=== PATIENT | male | born 1985 | race Caucasian/White ===

== ENCOUNTER 2021-04-13 15:00 | Outpatient (RCR) | payer OTHER, SELFPAY | END 2021-05-23 11:39 | disposition home or self-care (01) | LOC: HO.PT 15:00 | PROVIDERS: PCP Internal Medicine; Visit Provider Nurse Practitioner Acute Care | DX: M53.86 Other specified dorsopathies, lumbar region (principal) | CPT/HCPCS: 97110; 97161; 97530 ==

== ENCOUNTER 2021-12-05 10:20 | Outpatient (REF) | payer OTHER, SELFPAY ==
[2021-12-05 11:42] LABS: Alanine Aminotransferase 11 U/L (0-40); Albumin Level 4.5 g/dL (3.5-5.0); Alkaline Phosphatase 85 U/L (39-117); Anion Gap 14 (12-20); Aspartate Amino Transferase 16 U/L (5-37); Bilirubin Direct 0.2 mg/dL (0.0-0.5); Bilirubin Total 0.7 mg/dL (0.0-1.0); Blood Urea Nitrogen 10 mg/dL (9-16); Calcium 9.3 mg/dL (8.4-10.2); Carbon Dioxide 26 mmol/L (22-29); Chloride 104 mmol/L (96-108); Estimated Glomerular Filt Rate > 60; Glucose Random 98 mg/dL (60-115); Potassium 4.4 mmol/L (3.3-5.1); Sodium 140 mmol/L (135-145); Total Protein 7.3 g/dL (6.5-8.0)
[2021-12-05 11:46] LABS: Hematocrit 44.8 % (42.0-52.0); Hemoglobin 15.4 g/dl (14.0-18.0); Mean Corpuscular HGB Conc 34.4 g/dl (31.0-36.0); Mean Corpuscular Hemoglobin 30.1 pg (27.0-33.0); Mean Corpuscular Volume 87.7 fL (80.0-98.0); Mean Platelet Volume 9.8 fL (9.4-12.4); Platelet Count 194 X10*3/uL (160-400); Red Blood Count 5.11 X10*6/uL (4.60-5.80); Red Cell Distribution Width 12.1 % (11.0-16.0); White Blood Count 5.4 X10*3/uL (4.8-10.8)
[2021-12-05 12:03] LABS: Thyroid Stimulating Hormone 0.86 uIU/mL (0.32-4.0)
[2021-12-05 12:21] LABS: Erythrocyte Sedimentation Rate 5 MM/HR (0-15)
== END 2021-12-05 10:21 | disposition home or self-care (01) ==
LOC: HO.LAB 10:20
PROVIDERS: PCP Internal Medicine; Visit Provider Internal Medicine
DX: R10.9 Unspecified abdominal pain (principal)
CPT/HCPCS: 36415; 80048; 80076; 84443; 85027; 85652

== ENCOUNTER 2021-12-20 12:10 | Outpatient (REF) | payer OTHER, SELFPAY ==
--- NOTE | ~2021-12-20 | CT_ITS ---
EXAMINATION: CT ABDOMEN AND PELVIS WITH CONTRAST CLINICAL INFORMATION: Abdominal pain. COMPARISON: None TECHNIQUE: Multidetector volumetric images were obtained from the superior aspect of the liver through the pubic symphysis following administration 85 mL of Omnipaque 350 intravenous contrast. Sagittal and coronal reformatted images were obtained on the technologist's workstation. Oral contrast: No This CT examination was performed using dose optimization techniques as appropriate, variously including the following: *Automated exposure control *Adjustment of mA and/or kV according to patient size (this includes techniques or standardized protocols for targeted exams where dose is matched to indication/reason for exam; i.e. extremities or head) *Use of iterative reconstruction technique DLP: 435 mGy-cm FINDINGS: LUNG BASES: The visualized lung bases are unremarkable. LIVER, GALLBLADDER, AND BILIARY TREE: The liver is normal in size, shape, and attenuation. No focal hepatic lesion or biliary ductal dilatation is present. The gallbladder is unremarkable with no evidence of radiopaque gallstones, gallbladder wall thickening, or obvious pericholecystic inflammatory changes. PANCREAS: Unremarkable. SPLEEN: Unremarkable. ADRENAL GLANDS: Unremarkable. KIDNEYS AND URETERS: The kidneys are normal in size, shape, and attenuation. No hydronephrosis, hydroureter, or calculi seen. No perinephric stranding. BLADDER: Unremarkable. GASTROINTESTINAL TRACT: The small and large bowel are unremarkable. The appendix is unremarkable. No free air or free fluid. ABDOMINAL WALL: No significant hernia is appreciated. LYMPH NODES: Normal. VASCULAR: Unremarkable. PELVIC VISCERA: The prostate and seminal vesicles are unremarkable. OSSEOUS STRUCTURES: Unremarkable. CT/CT abdomen pelvis w IV con IMPRESSION: No acute findings of the abdomen or pelvis. No inflammatory changes. Normal appendix. Fleischner guidelines were followed.
[2021-12-20] MEDS: Barium Sulfate Oral (Vanilla) 450 ML ORAL.SUSP 900 ML PO (13:55)
[2021-12-20] MEDS: iohexoL 350 MG/ML 100 ML INFUS..BTL 85 ML IV (15:13)
== END 2021-12-20 12:11 | disposition home or self-care (01) ==
LOC: HO.CT 12:10
PROVIDERS: PCP Internal Medicine; Visit Provider Internal Medicine
DX: R10.9 Unspecified abdominal pain (principal)
CPT/HCPCS: 74177; Q9967

== ENCOUNTER 2023-05-30 13:53 | Outpatient (AMB) | payer OTHER, SELFPAY ==
--- NOTE | 2023-05-30 14:10 | A.OFFPC_ITS ---
Vital Signs 05/30/23 14:12 Height 5 ft 10 in Weight 204 lb 4 oz BMI 29.3 BP 130/80 Blood Pressure Location Lt brachial Position Sitting Pulse 58 Pulse Source Pulse Oximeter Pulse Oximetry (%) 98 Oxygen Delivery Method Room Air Intake Visit Reasons: PE Intake Note: Patient is here today for a physical. Cutter Out Required: No Cloth Printing Utility Worker: Not Required per policy Accompanied by: Self / Same As Patient Allergies amoxicillin Allergy (Verified 06/01/23 17:25) Hives Penicillins Allergy (Verified 06/01/23 17:25) Rash Medication List - Last Reconciled 06/01/23 by Hugo Workman MD No Known Home Meds Tobacco use date assessed: 05/30/23 Dental Screening Dental Screen Date: 05/30/23 Did you have a dental visit in the last 12 months?: Yes Did you have a dental problem in the last 6 months where you did not have access to dental care?: No Was dental information given to patient?: Patient has dentist HPI PE HPI Details 37-year-old male presents to the office requesting an annual physical. He is in good health. Able to function and do all activities of daily living. [facility] Medical History APL (acute promyelocytic leukemia) in remission Surgical History [place] teeth extracted Family History Paternal Grandmother Type 2 diabetes mellitus Degeneration macular Maternal Grandfather Lymphoma Paternal Grandfather Prostate cancer Colon cancer Father Prostate cancer Social History Household Members: Spouse and Children Housing: House Alcohol intake: current Alcohol intake frequency: a few times a week Alcohol type: beer, wine, hard liquor and other Patient Tobacco Use Status: Never used Tobacco e-Cigarette/Vaping Use: Never Used Second Hand Smoke Exposure: No service: No Current occupational status: employed 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 1. Little interest or pleasure in doing things: not at all 2. Feeling down, depressed, or hopeless: not at all 3. Trouble falling or staying asleep, or sleeping too much: not at all 4. Feeling tired or having little energy: not at all 5. Poor appetite or overeating: not at all 6. Feeling bad about yourself - or that you are a failure or have let yourself or your family down: not at all 7. Trouble concentrating on things, such as reading the newspaper or watching television: not at all 8. Moving or speaking so slowly that other people could have noticed. Or the opp osite - being so fidgety or restless that you have been moving around a lot more than usual: not at all 9. Thoughts that you would be better off or of hurting yourself in some way: not at all Total score: 0 Depression Screening Interpretation: Negative Depression Screening Done: Yes Source: Developed by Drs. Pipo Mera, Kiesha Shannon, Brandon Aquino and colleagues, with an educational aditi from [employer] Thrive Questionnaire Date Thrive assessed: 05/30/23 I am a: Patient What is your living situation today?: I have a steady place to live Within the past 12 months, did the food you bought not last and you didn't have the money to get more?: Never true Within the past 12 months, did you worry whether your food would run out before you got money to buy more?: Never true Do you have trouble paying for medicines?: No Do you have trouble getting transportation to medical appointments?: No Do you have trouble paying your heating and electricity bill?: No Do you have trouble taking care of your child, family member or friend?: No Do you have trouble with day-to-day activities such as bathing, preparing meals, shopping, managing finances, etc.?: No Are you currently unemployed and looking for a job?: No Are you interested in more education?: No Currently or been in a relationship where the following occur: no concerns reported THRIVE Score: 0 AUDIT C Alcohol Use Questionnaire (AUDIT-C) 1. How often do you have a drink containing alcohol?: 2-3 times a week 2. How many drinks containing alcohol do you have on a typical day when you are drinking?: 1 or 2 Total Score: 3 HONG-7 AMB Questionnaire HONG-7 Date HONG - 7 assessed: 05/30/23 Feeling nervous, anxious, or on edge: 0 = Not at all Not being able to stop or control worryin = Not at all Worrying too much about different things: 0 = Not at all Trouble relaxin = Not at all Being so restless that it is hard to sit still: 0 = Not at all Becoming easily annoyed or irritable: 0 = Not at all Feeling afraid as if something awful might happen: 0 = Not at all Total HONG-7 score (0-4 normal; 5-9 mild; 10-14 moderate; 15-21 severe): 0 Source: Developed by Drs. Pipo Mera, Kiesha Shannon, Brandon Aquino and colleagues, with an educational aditi from [employer]. Physical exam (Primary Care) Vital Signs: Last Vital Signs Pulse 58 05/30/23 14:12 BP 130/80 05/30/23 14:12 Pulse Ox 98 05/30/23 14:12 Oxygen Delivery Method Room Air 05/30/23 14:12 Care Plan Goal for BP management: Blood pressure is in range. BMI result Body Mass Index 29.3 Tobacco/Smoking Status: Tobacco use Status Tobacco use date assessed 05/30/23 05/30/23 14:16 Patient Tobacco Use Status Never used Tobacco 05/30/23 14:16 e-Cigarette/Vaping Use Never Used 05/30/23 14:16 PHQ-9: PHQ-9 Score PHQ-9: Total score 0 05/30/23 14:16 Depression Screening Interpretation: Negative Thrive Assessment: Date of Thrive Assessment Date Thrive assessed 05/30/23 05/30/23 14:16 Currently or been in a relationship where the following occur: no concerns reported Const General: cooperative and healthy appearing Nutritional Appearance: well nourished Orientation/consciousness: patient oriented x3 Limitations: no limitations HENMT Head: Yes normal to inspection Eyes General: appearance normal, both eyes and all related structures Neck Neck: Yes normal visual inspection Chest Chest palpation & inspection: normal palpation of entire chest wall Resp Effort & Inspection: normal respiratory effort Neuro General: patient oriented x3 Assessment and Plan Assessment & Plan (1) APML (acute promyelocytic leukemia) in remission: Code(s): C92.41 - Acute promyelocytic leukemia, in remission Plan: Condition is stable. Patient sees a practice architect. (2) Physical exam, annual: Code(s): Z. - Encounter for general adult medical examination without abnormal findings Plan: Blood work has been ordered. (3) Anxiety: Code(s): F41.9 - Anxiety disorder, unspecified Plan: Condition is stable. Patient is currently on no medications. Orders: Orders Complete Blood Count no Diff 05/30/23 Z00.00 - Encounter for general adult medical examination without abnormal findings Basic Metabolic Panel 05/30/23 Z00.00 - Encounter for general adult medical examination without abnormal findings Lipid Panel 05/30/23 Z00.00 - Encounter for general adult medical examination without abnormal findings Liver Panel 05/30/23 Z00.00 - Encounter for general adult medical examination without abnormal findings UA and rflx microscopic 05/30/23 Z00.00 - Encounter for general adult medical examination without abnormal findings Thyroid Stimulating Hormone 05/30/23 Z00.00 - Encounter for general adult medical examination without abnormal findings Coding Level of Care Code Est Pt Prev Care 18-39y(23221) Diagnoses APML (acute promyelocytic leukemia) in remission C92.41 Physical exam, annual Z00.00 Anxiety F41.9
[2023-05-30 14:12] VITALS: BP 130/80; PULSE 58; O2SAT 98; BMI 29.3
== END 2023-05-30 15:14 | disposition home or self-care (01) ==
PROVIDERS: PCP Internal Medicine; Visit Provider Internal Medicine
DX: C92.41 Acute promyelocytic leukemia, in remission (principal); Z00.00 Encounter for general adult medical examination without abnormal findings; F41.9 Anxiety disorder, unspecified
CPT/HCPCS: 99395

== ENCOUNTER 2023-06-25 09:29 | Outpatient (REF) | payer OTHER, SELFPAY ==
[2023-06-25 10:25] LABS: Hematocrit 43.2 % (42.0-52.0); Hemoglobin 15.2 g/dl (14.0-18.0); Mean Corpuscular HGB Conc 35.2 g/dl (31.0-36.0); Mean Corpuscular Hemoglobin 30.8 pg (27.0-33.0); Mean Corpuscular Volume 87.4 fL (80.0-98.0); Mean Platelet Volume 9.6 fL (9.4-12.4); Platelet Count 205 X10*3/uL (160-400); Red Blood Count 4.94 X10*6/uL (4.60-5.80); Red Cell Distribution Width 12.6 % (11.0-16.0); White Blood Count 4.9 X10*3/uL (4.8-10.8)
[2023-06-25 10:43] LABS: Appearance Urine Clear; Color Urine Yellow; Glucose Urine UA Negative (Negative); Leukocyte Esterase Urine Negative (Negative); Nitrite Urine Negative (Negative); Specific Gravity - Urine <= 1.005 (1.005-1.025); Urine Blood Negative (Negative); Urine Ketones Negative (Negative); Urine Protein Negative (Neg-Trace)
[2023-06-25 11:12] LABS: Alanine Aminotransferase 14 U/L (0-40); Albumin Level 4.4 g/dL (3.5-5.0); Alkaline Phosphatase 80 U/L (39-117); Anion Gap 13 (12-20); Aspartate Amino Transferase 16 U/L (5-37); Bilirubin Direct 0.2 mg/dL (0.0-0.5); Bilirubin Total 0.6 mg/dL (0.0-1.0); Blood Urea Nitrogen 10 mg/dL (9-16); Calcium 9.6 mg/dL (8.4-10.2); Carbon Dioxide 27 mmol/L (22-29); Chloride 105 mmol/L (96-108); Cholesterol 189 mg/dL (<200); Estimated Glomerular Filt Rate > 60; Glucose Random 97 mg/dL (60-115); HDL Cholesterol 48 mg/dL (>40); LDL Cholesterol Calculated 124 mg/dL (<100); Potassium 3.9 mmol/L (3.3-5.1); Sodium 141 mmol/L (135-145); Thyroid Stimulating Hormone 0.94 uIU/mL (0.32-4.0); Total Protein 7.5 g/dL (6.5-8.0); Triglycerides 85 mg/dL (<150)
== END 2023-06-25 09:30 | disposition home or self-care (01) ==
LOC: HO.LAB 09:29
PROVIDERS: PCP Internal Medicine; Visit Provider Internal Medicine
DX: Z00.00 Encounter for general adult medical examination without abnormal findings (principal); Z13.6 Encounter for screening for cardiovascular disorders
CPT/HCPCS: 36415; 80048; 80061; 80076; 81003; 84443; 85027

== ENCOUNTER 2023-07-10 13:57 | Outpatient (AMB) | payer OTHER, SELFPAY ==
--- NOTE | 2023-07-10 14:01 | A.OFFPC_ITS ---
Vital Signs 07/10/23 14:02 Height 5 ft 10 in Weight 201 lb BMI 28.8 BP 130/84 Blood Pressure Location Lt brachial Position Sitting Pulse 72 Pulse Source Pulse Oximeter Pulse Oximetry (%) 99 Oxygen Delivery Method Room Air Intake Visit Reasons: chest tightness when running Intake Note: Patient is here to follow up on chest tightness and pain when exercising ongoing for a month and half. 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 For the past six to seven weeks, patient experiences left sided chest discomfirt on running. Sometimes, when he has to take a deep breath it reproduces the same discomfort. No diaphoresis or shortness of breath. On one occasion patient has pain radiating to the left ear. [facility] Medical History APL (acute promyelocytic leukemia) in remission Surgical History [place] teeth extracted Family History Paternal Grandmother Type 2 diabetes mellitus Degeneration macular Maternal Grandfather Lymphoma Paternal Grandfather Prostate cancer Colon cancer Father Prostate cancer Social History Household Members: Spouse and Children Housing: House Alcohol intake: current Alcohol intake frequency: a few times a week Alcohol type: beer, wine, hard liquor and other Patient Tobacco Use Status: Never used Tobacco e-Cigarette/Vaping Use: Never Used Second Hand Smoke Exposure: No service: No Current occupational status: employed 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 Pipo Mera, Kiesha Shannon, Brandon Aquino and colleagues, with an educational aditi from [employer]. Physical exam (Primary Care) Vital Signs: Last Vital Signs Pulse 72 07/10/23 14:02 BP 130/84 07/10/23 14:02 Pulse Ox 99 07/10/23 14:02 Oxygen Delivery Method Room Air 07/10/23 14:02 Care Plan Goal for BP management: Blood pressure is in range. BMI result Body Mass Index 28.8 Tobacco/Smoking Status: Tobacco use Status Tobacco use date assessed 07/10/23 07/10/23 14:07 Patient Tobacco Use Status Never used Tobacco 07/10/23 14:07 e-Cigarette/Vaping Use Never Used 07/10/23 14:07 Thrive Assessment: Date of Thrive Assessment Date Thrive assessed 05/30/23 07/10/23 14:07 Office Procedures EKG Details: Normal sinus rhythm. RSR pattern in lead V1. 37426-Glfodzuytqxvgijfy, Complete Assessment and Plan Assessment & Plan (1) Chest pain: Code(s): R07.9 - Chest pain, unspecified Plan: Cardiac etiology needs to be ruled out. EKG was unremarkable. A stress test has been ordered. Meanwhile, patient has been ordered not to exercise till the stress test is done. Orders: Orders NM cardiolite stress test Today R07.9 - Chest pain, unspecified AMB EKG-In Office Today R07.9 - Chest pain, unspecified CA stress test Today R07.9 - Chest pain, unspecified Medications: New atorvastatin 10 mg PO BEDTIME 90 tabs 1RF Coding Level of Care Code Est Pt Level 4 (81966) Diagnoses Chest pain R07.9 CPT Codes EKG - CPT: 14038-[id number], Complete ([id number])
[2023-07-10 14:02] VITALS: BP 130/84; PULSE 72; O2SAT 99; BMI 28.8
== END 2023-07-10 14:49 | disposition home or self-care (01) ==
LOC: HO.HMGH 13:59
PROVIDERS: PCP Internal Medicine; Visit Provider Internal Medicine
DX: R07.9 Chest pain, unspecified (principal)
CPT/HCPCS: 93000; 99214

== ENCOUNTER 2024-06-02 15:01 | Outpatient (RCR) | payer OTHER, SELFPAY ==
--- NOTE | 2024-04-17 15:55 | MHC.PT.EP ---
[facility] [place] Office [place] Office [place] Office [address] [phone] F: [phone] F: [phone] F: [phone] F: [phone] Physical Therapy Plan of Care Date of Evaluation: 04/17/24 Date of Surgery: NA Diagnosis: FOOT PAIN R Assessment: Pt IS 38 YO M REFERRED TO PT WITH R FOOT PAIN THAT STARTED 3 MONTHS AGO. Pt IS A RUNNER. WAS SEEN HERE FOR PT YEARS AGO FOR L SCIATICA. PRESENTS WITH GOOD OVERALL ANKLE ROM AND STRENGTH FOR DF/PF. MAY HAVE SOME WEAKNESS IN INVERTERS/EVERTERS. 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 SHOULD BENEFIT FROM PT TO HELP IMPROVE ANKLE STRENGTH (EVERSION ESPECIALLY) AND HELP WITH GENERAL LE FLEXIBILITY Frequency and Duration: The patient will be seen 1-2X/WK X 6 WKS Short Term Goals: 1. INCREASED AWARENESS ANKLE AND FOOT CARE 2. I TAPING ANKLE/ARCH APPROPRIATE Penit[facility]iary Goals: 1. I HEP WITH DC EX PLAN 2. INCREASED SPEED AND DISTANCE RUNNING WITH LESS PAIN Treatment Plan: Modalities to reduce pain, spasms and effusion. Manual therapy to restore motion and function. Therapeutic exercise to improve strength and flexibility. Neuromuscular re-education for posture and balance. Therapeutic activities to return to functional activities of daily living. Electronically signed by: ANIA DRAPER PT Please sign and return to therapist. Thank you for your referral.
--- NOTE | 2024-07-22 11:15 | MHC.PT.DC ---
[facility] [place] [facility] [place] [facility] [place] [facility] [address] Kenna Brito [address] [phone] F: [phone] F: [phone] F: [phone] F: [phone] Physical Therapy Discharge Report Diagnosis: FOOT PAIN R Date of Surgery: NA Date of Evaluation: 04/17/24 Date of Discharge: 07/22/24 Treatments to Date: 8 Cancellations to Date: No Shows to Date: Discharge Status: Improved Function Independent with HEP Patient Elected to Stop Discharge Summary: Pt SEEN FOR INIT EVAL AND 7 VISITS. HAS MET MOST PT GOALS. TO SEE STORE CONSULTANT IN JUNE AND CALL AFTER. OF 07/22, Pt HAS NOT CALLED FOR FURTHER VISITS Electronically signed by: ANIA DRAPER PT Please sign and return to therapist. Thank you for your referral.
== END 2024-07-22 11:16 | disposition home or self-care (01) ==
LOC: HO.PT 15:01
PROVIDERS: PCP Internal Medicine; Visit Provider Physician Assistant Medical
DX: M79.671 Pain in right foot (principal)
CPT/HCPCS: 97110; 97140; 97161; 97530

== ENCOUNTER 2024-06-04 14:39 | Outpatient (AMB) | payer OTHER, SELFPAY ==
--- NOTE | 2024-06-04 14:45 | A.OFFPC_ITS ---
Vital Signs 06/04/24 14:46 Height 5 ft 10 in Weight 199 lb BMI 28.6 BP 110/72 Blood Pressure Location Lt brachial Position Sitting Pulse 55 Pulse Source Pulse Oximeter Temp 97.3 F Temp Source Temporal Artery Scan Pulse Oximetry (%) 99 Oxygen Delivery Method Room Air Intake Visit Reasons: Annual Exam Intake Note: Patient is here today for a physical. Cna Required: No Human Resources Department Supervisor: Not Required per policy Accompanied by: Self / Same As Patient Allergies amoxicillin Allergy (Verified 06/04/24 14:45) Hives Penicillins Allergy (Verified 06/04/24 14:45) Rash Tobacco use date assessed: 06/04/24 Dental Screening Dental Screen Date: 06/04/24 Did you have a dental visit in the last 12 months?: Yes Did you have a dental problem in the last 6 months where you did not have access to dental care?: No Was dental information given to patient?: Patient has dentist [facility] Medical History APL (acute promyelocytic leukemia) in remission Surgical History [place] teeth extracted Family History Paternal Grandmother Type 2 diabetes mellitus Degeneration macular Maternal Grandfather Lymphoma Paternal Grandfather Prostate cancer Colon cancer Father Prostate cancer Social History Household Members: Spouse and Children Housing: House Alcohol intake: current Alcohol intake frequency: a few times a week Alcohol type: beer, wine, hard liquor and other Patient Tobacco Use Status: Never used Tobacco e-Cigarette/Vaping Use: Never Used Second Hand Smoke Exposure: No service: No Current occupational status: employed 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 1. Little interest or pleasure in doing things: not at all 2. Feeling down, depressed, or hopeless: not at all 3. Trouble falling or staying asleep, or sleeping too much: not at all 4. Feeling tired or having little energy: not at all 5. Poor appetite or overeating: not at all 6. Feeling bad about yourself - or that you are a failure or have let yourself or your family down: not at all 7. Trouble concentrating on things, such as reading the newspaper or watching television: not at all 8. Moving or speaking so slowly that other people could have noticed. Or the opposite - being so fidgety or restless that you have been moving around a lot more than usual: not at all 9. Thoughts that you would be better off or of hurting yourself in some way: not at all Total score: 0 Depression Screening Interpretation: Negative Depression Screening Done: Yes Source: Developed by Drs. Pipo Mera, Kiesha Shannon, Brandon Aquino and colleagues, with an educational aditi from [employer]. Thrive Questionnaire Date Thrive assessed: 06/04/24 I am a: Patient What is your living situation today?: I have a steady place to live Within the past 12 months, did the food you bought not last and you didn't have the money to get more?: Never true Within the past 12 months, did you worry whether your food would run out before you got money to buy more?: I choose not to answer this question Do you have trouble paying for medicines?: I choose not to answer this question Do you have trouble getting transportation to medical appointments?: No Do you have trouble paying your heating and electricity bill?: No Do you have trouble taking care of your child, family member or friend?: No Do you have trouble with day-to-day activities such as bathing, preparing meals, shopping, managing finances, etc.?: No Are you currently unemployed and looking for a job?: No Are you interested in more education?: No Please select the resources that you would like help with: None Currently or been in a relationship where the following occur: No concerns reported THRIVE Score: 0 AUDIT C Alcohol Use Questionnaire (AUDIT-C) 1. How often do you have a drink containing alcohol?: 2-4 times a month 2. How many drinks containing alcohol do you have on a typical day when you are drinking?: 1 or 2 3. How often do you have six or more drinks on one occasion?: Never Total Score: 2 HONG-7 AMB Questionnaire HONG-7 Date HONG - 7 assessed: 06/04/24 Feeling nervous, anxious, or on edge: 1 = Several days Not being able to stop or control worryin = Several days Worrying too much about different things: 0 = Not at all Trouble relaxin = Not at all Being so restless that it is hard to sit still: 0 = Not at all Becoming easily annoyed or irritable: 0 = Not at all Feeling afraid as if something awful might happen: 1 = Several days Total HONG-7 score (0-4 normal; 5-9 mild; 10-14 moderate; 15-21 severe): 3 Source: Developed by Drs. Pipo Mera, Kiesha Shannon, Brandon Aquino and colleagues, with an educational aditi from [employer]. Physical exam (Primary Care) Vital Signs: Last Vital Signs Temp 97.3 F 06/04/24 14:46 Pulse 55 06/04/24 14:46 BP 110/72 06/04/24 14:46 Pulse Ox 99 06/04/24 14:46 Oxygen Delivery Method Room Air 06/04/24 14:46 BMI result Body Mass Index 28.6 Tobacco/Smoking Status: Tobacco use Status Tobacco use date assessed 06/04/24 06/04/24 14:50 Patient Tobacco Use Status Never used Tobacco 06/04/24 14:50 e-Cigarette/Vaping Use Never Used 06/04/24 14:50 PHQ-9: PHQ-9 Score PHQ-9: Total score 0 06/04/24 14:50 Depression Screening Interpretation: Negative Thrive Assessment: Date of Thrive Assessment Date Thrive assessed 06/04/24 06/04/24 14:50 Currently or been in a relationship where the following occur: No concerns reported Coding Level of Care Code Est Pt Prev Care 18-39y(37094) Diagnoses Physical exam, annual Z00.00 Assessment & Plan Assessment & Plan (1) Physical exam, annual: Code(s): Z00.00 - Encounter for general adult medical examination without abnormal findings Category: Medical Plan: History of Present Illness The patient is a 38-year-old male presenting for an annual physical examination and evaluation of ongoing hyperlipidemia management. He recently completed physical therapy for foot pain and has a follow-up appointment with a aircraft launch and recovery technician pending. There are no major health concerns, but he is currently prescribed a statin for hyperlipidemia. The patient is keen to understand the necessity of this medication, given his low cardiovascular risk profile. He expressed a desire to avoid unnecessary medication exposure, justified by an absence of family history of heart disease, normal blood pressure, no diabetes, and as a nonsmoker. The patient attributes past chest discomfort to muscular causes, with no ongoing symptoms. Concerns about long-term medication safety were discussed, with reassurance provided regarding the low risk associated with maintaining current statin therapy. Social History - Exercises through physical therapy sessions for foot pain. - No history of smoking. Review of Systems - Cardiovascular: Denies significant chest pain currently, reports previous discomfort believed to be muscular. - Gastrointestinal: Denies abdominal pain. - Musculoskeletal: Reports recent foot pain under physical therapy management. Physical Exam General: Cooperative and healthy appearing Nutritional Appearance: Well nourished Orientation/consciousness: Patient oriented x3 Limitations: No limitations Head: Normal to inspection General: Appearance normal, both eyes and all related structures Neck: Normal visual inspection Chest: Normal palpation of entire chest wall Respiratory: N ormal respiratory effort Neurology: Patient oriented x3, no chest pain, risk for heart disease is low, no family history, no blood pressure issues, no diabetes, nonsmoker. Results Plan The patient will continue current management with statin therapy addressing hyperlipidemia, as the benefits of reducing cardiovascular risk outweigh the negligible long-term use risks observed at the 10 mg dose. Fasting blood work will be arranged to evaluate lipid levels, and labs will be reviewed for any necessary medication adjustments. The upcoming aircraft launch and recovery technician evaluation on June 18 will provide further guidance on the patient's foot pain. Continued monitoring and reassessment of any symptoms will be ongoing, supporting decision making in medication use based on risk-benefit assessment. Patient was informed and verbally consented to the use of an ambient scribe for clinic note documentation during this visit. Discussion Notes I discussed with the patient the affects of statin therapy, emphasizing that low-dose statin use poses minimal risk particularly given the absence of family history, normal blood pressure, no diabetes, and nonsmoking status. Statins provide a means to manage cardiovascular risk effectively, a choice the patient is encouraged to continue while periodic assessments such as the upcoming fasting bloodwork remain vital in monitoring patients LDL levels. I reassured the patient about the low risk associated currently with muscle chest pain and our focus remains on continued symptom evaluation. I outlined follow-up plans and encouraged continued engagement with specialist care for his foot to further evaluate and manage specific discomforts. Patient Instructions - Continue taking your statin medication as prescribed. - Schedule a fasting blood test as ordered. - Follow up with the aircraft launch and recovery technician as planned. - Monitor any symptoms and report changes. - Contact us if you experience new or worsening chest pain.
[2024-06-04 14:46] VITALS: BP 110/72; PULSE 55; TEMP 36.3; O2SAT 99; BMI 28.6
--- OUTSIDE RECORDS SUMMARY | 2024-06-04 17:35 | XMS_ITS ---
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 [address] [place] [address] 03/25/2024 Tulio Martin Plan Of Treatment Next Appt Details Provider Name:Tulio Martin , 06/18/2024 01:00:00 PM, [address] [facility], [place] [address], [place], [address], Progress Notes * Randolph CHIRINOSDOB:[birth year] (38 yo M)Acc No.[id number]:03/25/2024 Patient:?Randolph CHIRINOS :1985???Age:38 Y???Sex:Male Address:[address] [place] [address] [place], [address] * true * Date:? Generated for Printi ng/Faxing/eTransmitting on:?06/04/2024 05:34 PM EDT
--- OUTSIDE RECORDS SUMMARY | 2024-06-04 17:35 | XMS_ITS | Patient Health Record ---
Author Organization [facility] Address [address] [place] [address] Care Team Providers Care Floral Associate Name Role Phone Hugo Workman Primary Care Provider [phone] Tulio Martin Unavailable [phone] Allergies Allergen (clinical drug ingredient) Drug/Non Drug Allergy documented on EMR Reaction Allergy Type Onset Date Status Penicillin hives Drug Allergy Active Reason For Referral No Information Social History Tobacco Use: Social History Observation Description Date Details (start date - stop date) Never Smoker NA - NA Tobacco use other than smoking: Question Answer Notes Are you an other tobacco user? No Tobacco Control (Standard) Question Answer Notes Tobacco use: Nonsmoker Additional Findings: Tobacco non-user Current no nsmoker AUDIT-C (Standard) Question Answer Notes Did you have a drink contain ing alcohol in the past year? Yes How often did you have a dri nk containing alcohol in the past year? 2 to 4 times a month (2 points) How many drinks did you have on a typical day when you were drinking in the past year? Declined to specify (0 point) How often did you have six o r more drinks on one occasion in the past year? Declined to specify (0 point) Points 2 Interpretation Negative Encounters Encounter Location Date Provider Diagnosis [facility] [address] [place] [address] 03/25/2024 Tulio Martin Plan Of Treatment Next Appt Details Provider Name:Tulio Martin , 06/18/2024 01:00:00 PM, [address] [address], [place], [address], Insurance Providers Payer Name Payer Address Payer Phone Subscriber Number Group Number Insured Name Patient Relationship to Insured Coverage Start Date Coverage End Date A[employer] [address] [id number] [phone] [id number] Randolph Chirinos Self - patient is the insured Medical (General) History Medical History History ICD Code Angina Back,Hip,and Knee pain Cancer Sciatica Chicken pox Transfusions
== END 2024-06-04 16:29 | disposition home or self-care (01) ==
LOC: HO.HMCH 14:40
PROVIDERS: PCP Internal Medicine; Visit Provider Internal Medicine
DX: Z00.00 Encounter for general adult medical examination without abnormal findings (principal)

== ENCOUNTER → 2024-06-04 14:39 | Outpatient (BNVA) | payer OTHER, SELFPAY | PROVIDERS: PCP Internal Medicine; Visit Provider Internal Medicine ==

== ENCOUNTER 2024-08-14 08:20 | Outpatient (REF) | payer OTHER, SELFPAY ==
--- OUTSIDE RECORDS SUMMARY | 2024-08-14 08:27 | XMS_ITS | Patient Health Record ---
Author Organization [facility] Address [address] [place] [address] Care Team Providers Care Manager Of Corporate Communications Name Role Phone Hugo Workman Primary Care Provider [phone] Tulio Martin Unavailable [phone] Allergies Allergen (clinical drug ingredient) Drug/Non Drug Allergy documented on EMR Reaction Allergy Type Onset Date Status Penicillin hives Drug Allergy Active Reason For Referral No Information Medications Medication SIG (Take, Route, Frequency, Duration) Notes Start Date End Date Status Atorvastatin Calcium 10 MG 1 tablet Oral ly Once a day Active Immunizations Vaccine Route Administration Date Status Comme nts Influenza Unknown 12/30/2023 Administered Social History Tobacco Use: Social History Observation [...] specify (0 point) Points 2 Interpretation Negative Vital Signs Blood pressure diastolic 74 mm Hg 07/22/2024 Height 5ft 10in in 07/22/2024 Blood pressure systolic 128 mm Hg 07/22/2024 Weight 190 lbs 07/22/2024 BMI 27.26 kg/m2 07/22/2024 Encounters Encounter Location Date Provider [facility] [address] [address] 06/18/2024 Tulioluciana Martin Pain in right foot M79.671 ; Pain in right ankle and joints of right foot M25.571 ; Bursitis of intermetatarsal bursa of right foot M77.51 and Metatarsalgia, right foot M77.41 [facility] [address] [place] [address] 07/22/2024 Tulio Mario Bursitis of intermetatarsal bursa of right foot M77.51 and Metatarsalgia, right foot M77.41 [facility] [address] [place] [address] 03/25/2024 Tulio [facility] [address] [place] [address] 06/18/2024 [facility] [address] 07/22/2024 Tulio Martin Assessments Encounter Date Diagnosis (ICD Code) Assessment Notes Treatment Notes Treatment Clinical Notes Section Notes 06/18/2024 Pain in right ankle and joints of right foot (ICD-10 - M25.571) 06/18/2024 Pain in right foot (ICD-10 - M79.671) 07/22/2024 Metatarsalgia, right foot (ICD-10 - M77.41) 07/22/2024 Bursitis of intermetatarsal bursa of right foot (ICD-10 - M77.51) 06/18/2024 Bursitis of intermetatarsal bursa of right foot (ICD-10 - M77.51) 06/18/2024 Metatarsalgia, right foot (ICD-10 - M77.41) Plan Of Treatment Pending Test Test Name Order Date X ray : Foot, right 3V 06/18/2024 Insurance Providers Payer Name Payer Address Payer Phone Subscriber Number Group Number Insured Name Patient Relationship to Insured Coverage Start Date Coverage End Date A[employer] [address] [place] [address] [id number] Randolph Chirinos Self - patient is the insured Medical (General) History Medical History History ICD Code Angina Back,Hip,and Knee pain Cancer Sciatica Chicken pox Transfusions Hypercholesterolemia
[2024-08-14 08:54] LABS: Hematocrit 42.1 % (42.0-52.0); Hemoglobin 14.6 g/dl (14.0-18.0); Mean Corpuscular HGB Conc 34.7 g/dl (31.0-36.0); Mean Corpuscular Hemoglobin 30.9 pg (27.0-33.0); Platelet Count 190 X10*3/uL (160-400); Red Blood Count 4.73 X10*6/uL (4.60-5.80); Red Cell Distribution Width 12.5 % (11.0-16.0); White Blood Count 5.7 X10*3/uL (4.8-10.8)
[2024-08-14 09:03] LABS: Appearance Urine Clear; Color Urine Yellow; Glucose Urine UA Negative (Negative); Leukocyte Esterase Urine Negative (Negative); Nitrite Urine Negative (Negative); Urine Blood Negative (Negative); Urine Ketones Negative (Negative); Urine Protein Negative (Neg-Trace)
[2024-08-14 09:33] LABS: Alanine Aminotransferase 23 U/L (0-40); Albumin Level 4.6 g/dL (3.5-5.0); Alkaline Phosphatase 74 U/L (39-117); Anion Gap 11 (12-20); Aspartate Amino Transferase 24 U/L (5-37); Bilirubin Direct 0.3 mg/dL (0.0-0.5); Bilirubin Total 0.6 mg/dL (0.0-1.0); Blood Urea Nitrogen 9 mg/dL (9-16); Calcium 8.9 mg/dL (8.4-10.2); Carbon Dioxide 26 mmol/L (22-29); Chloride 106 mmol/L (96-108); Cholesterol 131 mg/dL (<200); Estimated Glomerular Filt Rate > 60; Glucose Random 91 mg/dL (60-115); HDL Cholesterol 50 mg/dL (>40); LDL Cholesterol Calculated 71 mg/dL (<100); Potassium 3.6 mmol/L (3.3-5.1); Sodium 139 mmol/L (135-145); Total Protein 7.1 g/dL (6.5-8.0); Triglycerides 53 mg/dL (<150)
[2024-08-14 09:51] LABS: Thyroid Stimulating Hormone 1.94 uIU/mL (0.32-4.0)
== END 2024-08-14 08:21 | disposition home or self-care (01) ==
LOC: HO.LAB 08:20
PROVIDERS: PCP Internal Medicine; Visit Provider Internal Medicine
DX: R03.0 Elevated blood-pressure reading, without diagnosis of hypertension (principal)
CPT/HCPCS: 36415; 80048; 80061; 80076; 81003; 84443; 85027

== ENCOUNTER 2025-01-21 08:15 | Outpatient (AMB) | payer OTHER, SELFPAY ==
--- OUTSIDE RECORDS SUMMARY | 2025-01-21 08:28 | XMS_ITS | Patient Health Record ---
Author Organization [facility] [place] [facility] [place] Address [address] [place] [address] Care Team Providers Care Insurance Claims Adjuster Name Role Phone JacintaHugo carlos Primary Care Provider [phone] Tulio Martin Unavailable [phone] Allergies Allergen (clinical drug ingredient) Drug/Non Drug [...] 07/22/2024 Encounters Encounter Location Date Provider Diagnosis [facility] [address] [address] 06/18/2024 Tulioluciana Martin Pain in right foot M79.671 ; Pain in right ankle and joints of right foot M25.571 ; Bursitis of intermetatarsal bursa of right foot M77.51 and Metatarsalgia, right foot M77.41 [facility] [address] [place] [address] 07/22/2024 Tulio Mario Bursitis of intermetatarsal bursa of right foot M77.51 and Metatarsalgia, right foot M77.41 [facility] [address] [place] [address] 03/25/2024 Tulio Martin [facility] [address] [place] [address] 06/18/2024 Tulio Martin [facility] [address] 07/22/2024 Tulio Martin Assessments Encounter Date Diagnosis [...] Date Coverage End Date A[employer] [address] [place] [phone] [id number] Randolph Chirinos Self - patient is the insured Medical (General) History Medical History History ICD Code Angina Back,Hip,and Knee pain Cancer Sciatica Chicken pox Transfusions Hypercholesterolemia
[2025-01-21 08:29] VITALS: BP 130/70; PULSE 75; TEMP 36.2; O2SAT 98; BMI 28.7
--- NOTE | 2025-01-21 08:29 | A.OFFPC_ITS ---
Vital Signs 01/21/25 08:29 Height 5 ft 10 in Weight 200 lb 6 oz BMI 28.7 BP 130/70 Blood Pressure Location Lt brachial Position Sitting Pulse 75 Pulse Source Pulse Oximeter Temp 97.1 F Temp Source Temporal Artery Scan Pulse Oximetry (%) 98 Oxygen Delivery Method Room Air Intake Visit Reasons: acid reflux Intake Note: Patient is here to follow up on Acid reflux. Shirring Machine Operator Required: No Food And Beverage Attendant: Not Required per policy Accompanied by: Self / Same As Patient Allergies amoxicillin Allergy (Verified 01/21/25 08:51) Hives Penicillins Allergy (Verified 01/21/25 08:51) Rash Medication List - Last Reconciled 01/21/25 by Hugo Workman MD pantoprazole 40 mg PO DAILY Tobacco use date assessed: 01/21/25 Dental Screening Dental Screen Date: 06/04/24 HPI HPI Comments History of Present Illness Details History of Present Illness - The patient is a 39-year-old male pres enting with stomach acid issues. - He reports symptoms started approximat kalpana 6 months ago and include waking up with a burning sensation on the back of his tongue and in his throat. - He denies experiencing significant hea rtburn but does note stomach churning and gurgling. - Symptoms are exacerbated by spicy food s, tomatoes, and alcohol, and he has reduced his intake of these items, which provided some initial help. - He has been taking TUMS every other da y, which offers some overnight relief, but he still wakes up with a burning throat. - He notes his bowel movements are violetta l. - The patient believes that slight work- related stress may be connected to his symptoms. - Blood work performed in July was violetta l. Social History - Alcohol: The patient reports that alco hol exacerbates his symptoms, and he has reduced his intake. - Stress: The patient reports being slig htly stressed due to his work. Results - Labs: Blood work in July was reported as normal. [facility] Medical History (Updated 01/21/25 @ 08:43 by Hugo Workman MD) GERD (gastroesophageal reflux disease) APL (acute promyelocytic leukemia) in remission Surgical History [place] teeth extracted Family History Paternal Grandmother Type 2 diabetes mellitus Degeneration macular Maternal Grandfather Lymphoma Paternal Grandfather Prostate cancer Colon cancer Father Prostate cancer Social History Household Members: Spouse and Children Housing: House Alcohol intake: current Alcohol intake frequency: a few times a week Alcohol type: beer, wine, hard liquor and other Patient Tobacco Use Status: Never used Tobacco e-Cigarette/Vaping Use: Never Used Second Hand Smoke Exposure: No service: No Current occupational status: employed 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 Cognitive needs: No Hearing needs: No Vision needs: Yes (Glasses) Questionnaire Thrive Questionnaire Date Thrive assessed: 06/04/24 I am a: Patient What is your living situation today?: I have a steady place to live Within the past 12 months, did the food you bought not last and you didn't have the money to get more?: Never true Within the past 12 months, did you worry whether your food would run out before you got money to buy more?: I choose not to answer this question Do you have trouble paying for medicines?: I choose not to answer this question Do you have trouble getting transportation to medical appointments?: No Do you have trouble paying your heating and electricity bill?: No Do you have trouble taking care of your child, family member or friend?: No Do you have trouble with day-to-day activities such as bathing, preparing meals, shopping, managing finances, etc.?: No Are you currently unemployed and looking for a job?: No Are you interested in more education?: No Please select the resources that you would like help with: None Currently or been in a relationship where the following occur: No concerns reported THRIVE Score: 0 HONG-7 AMB Questionnaire HONG-7 Date HONG - 7 assessed: 06/04/24 Source: Developed by Drs. Pipo Mera, Kiesah Shannon, Brandon Aquino and colleagues, with an educational aditi from [employer]. Review of Systems Narrative Review of Systems - GI: Reports a burning sensation in the throat and on the back of the tongue upon waking, along with stomach churning and gurgling. - Denies significant heartburn, changes in bowel habits, and excessive belching or burping. Physical exam (Primary Care) Vital Signs: Last Vital Signs Temp 97.1 F 01/21/25 08:29 Pulse 75 01/21/25 08:29 BP 130/70 01/21/25 08:29 Pulse Ox 98 01/21/25 08:29 Oxygen Delivery Method Room Air 01/21/25 08:29 BMI result Body Mass Index 28.7 Tobacco/Smoking Status: Tobacco use Status Tobacco use date assessed 01/21/25 01/21/25 08:34 Patient Tobacco Use Status Never used Tobacco 01/21/25 08:34 e-Cigarette/Vaping Use Never Used 01/21/25 08:34 Thrive Assessment: Date of Thrive Assessment Date Thrive assessed 06/04/24 01/21/25 08:34 Currently or been in a relationship where the following occur: No concerns reported Narrative Physical Exam General: Cooperative and healthy appearing Nutritional Appearance: Well nourished Orientation/consciousness: Patient oriented x3 Limitations: No limitations Head: Normal to inspection General: Appearance normal, both eyes and all related structures Neck: Normal visual inspection Chest: Normal palpation of entire chest wall Respiratory: Normal respiratory effort Neurology: Patient oriented x3 Coding Level of Care Code Est Pt Level 4 (13140) Complex visit Add On G2211 Diagnoses GERD (gastroesophageal reflux disease) K21.9 Assessment & Plan Assessment & Plan (1) GERD (gastroesophageal reflux disease): Code(s): K21.9 - Gastro-esophageal reflux disease without esophagitis Category: Medical Plan Plan - The patient is diagnosed with reflux disease. - Initiate pantoprazole 40 mg once daily for 60 days as a trial. - The patient is advised to take the medication daily, regardless of symptoms, to promote healing and to discontinue other antacids like TUMS. - If symptoms are fully relieved after 60 days, he should stop the medication. If symptoms return, further testing will be considered. - No immediate follow-up appointment is necessary; he will maintain his scheduled yearly visit in June. - The patient is to provide an update on his condition via the patient portal. - He is instructed to send a test message through the portal to confirm communication is working correctly and to direct messages to the physician's name. Discussion Notes I discussed with the patient that his symptoms are consistent with reflux disease. The plan is to start a proton pump inhibitor, pantoprazole 40 mg, daily for a 60-day course to allow for healing. I explained that the medication should be taken consistently, not intermittently, and that it would replace his current use of antacids like TUMS. We reviewed that short-term side effects are minimal, and he should stop the medication after the course if his symptoms have completely resolved. If symptoms return, we will consider further testing. We also addressed his difficulty in getting timely appointments and issues with portal communication. I advised him that the patient portal is the most effective way to communicate for non-urgent matters and instructed him to send me a test message to ensure it is correctly routed. I informed him that urgent issues might still require a visit to an urgent care center. Patient Instructions - Take pantoprazole 40 mg by mouth once every day. - You should take this medication for two months, even on days you feel well. - You do not need to take other antacids like TUMS while on this medication. - If your symptoms are completely gone after two months, you may stop taking the medication. - If your symptoms come back after stopping, please contact our office. - Continue to avoid foods that make your symptoms worse, such as spicy foods, tomatoes, and alcohol. - Please send a message through the patient portal to let me know how you are feeling on the new medication. - For urgent health problems, please go to an urgent care center. - Keep your scheduled yearly physical appointment in June. Medications: New pantoprazole 40 mg PO DAILY 90 tabs 1RF
== END 2025-01-21 11:05 | disposition home or self-care (01) ==
LOC: HO.HMCH 08:16
PROVIDERS: PCP Internal Medicine; Visit Provider Internal Medicine
DX: K21.9 Gastro-esophageal reflux disease without esophagitis (principal)